=== PATIENT | female | born 1945 ===

== ENCOUNTER 2023-12-25 05:16 | Day surgery (SDC) | payer MEDICARE, BC ==
[2023-12-25] VITALS (15 sets, daily range): BP systolic 107–141; BP diastolic 45–66; PULSE 69–84; TEMP 96.2–98.1
[~2023-12-25] VITALS: Ht 177.8 cm; Wt 77.0 kg
[~2023-12-25 05:16] MED LIST: LR 1,000 ML IV SCH
[2023-12-25] MEDS ORDERED: MOBIC 7.5MG7.5 MG PO (06:36)
[2023-12-25] MEDS ORDERED: PROTONIX 40MG T40 MG PO (06:36)
[2023-12-25] MEDS ORDERED: NEURONTIN300 MG/CAP PO (06:36)
[2023-12-25] MEDS ORDERED: HCTZ 25MG TAB25 MG PO (06:37)
[2023-12-25] MEDS ORDERED: PRINIVIL20 MG PO (06:37)
[2023-12-25] MEDS ORDERED: TYLENOL 500MG500 MG PO (06:38)
[2023-12-25] MEDS ORDERED: MAGNESIUM200 MG PO (06:39)
[2023-12-25] MEDS ORDERED: PHARMASSURE ZIN50 MG PO (06:39)
[2023-12-25] MEDS ORDERED: COMPLETE MULTI1 TAB PO (06:39)
[2023-12-25] MEDS ORDERED: LUTEIN20 M1 PO (06:40)
[2023-12-25] MEDS ORDERED: VITAMIN D362.5 MCG PO (06:41)
[2023-12-25] MEDS ORDERED: Tranexamic Acid 1,000 MG/10 ML VIAL ONE (07:07)
[2023-12-25] MEDS ORDERED: fentaNYL 50 MCG/ML 2 ML VIAL ONE (07:10)
[2023-12-25] MEDS ORDERED: Morphine 4 MG/ML VIAL IV PRN (07:30)
[2023-12-25] MEDS ORDERED: Ondansetron 4 MG/2 ML VIAL IV PRN ×2 (07:30→09:45)
[2023-12-25] MEDS ORDERED: Naloxone 0.4 MG/ML VIAL IV PRN (07:30)
[2023-12-25] MEDS ORDERED: Magnes Hydrox (MOM) 80 MG/ML 30 ML CUP PO PRN (07:30)
[2023-12-25] MEDS ORDERED: Mag/Al Hydrox/Simeth Susp 30 ML CUP PO PRN (07:30)
[2023-12-25] MEDS ORDERED: Bisacodyl 5 MG TAB PO PRN (07:30)
[2023-12-25] MEDS ORDERED: Acetaminophen 500 MG TAB PO PRN (07:30)
[2023-12-25] MEDS ORDERED: NS 1,000 ML IV SCH (07:30)
[2023-12-25] MEDS ORDERED: Ketorolac 15 MG/ML VIAL IV SCH (07:30)
[2023-12-25] MEDS ORDERED: oxyCODONE 5 MG TAB PO PRN (07:30)
[2023-12-25] MEDS ORDERED: Ketorolac 30 MG/ML VIAL IV\\IM ONE (08:16)
[2023-12-25] MEDS ORDERED: Morphine 4 MG/ML VIAL SQ ONE (08:16)
[2023-12-25] MEDS ORDERED: Acetaminophen 500 MG TAB PO SCH (08:23)
[2023-12-25] MEDS ORDERED: Magnes Hydrox (MOM) 80 MG/ML 30 ML CUP PO SCH (09:00)
[2023-12-25] MEDS ORDERED: Sennosides/Docusate 8.6-50 MG TAB PO SCH (09:00)
[2023-12-25] MEDS ORDERED: Ascorbic Acid 500 MG TAB PO SCH (09:00)
[2023-12-25] MEDS ORDERED: HYDROmorphone 1 MG/1 ML SYRINGE [PACU/SDC ONLY] IV PRN (09:45)
[2023-12-25] MEDS ORDERED: hydrALAZINE 20 MG/ML 1 ML VIAL IV PRN (09:45)
[2023-12-25] MEDS ORDERED: fentaNYL 50 MCG/ML 1 ML SYRINGE/VIAL [PACU/SDC ONLY] IV PRN (09:45)
[2023-12-25] MEDS ORDERED: Ketorolac 15 MG/ML VIAL IV PRN (09:45)
[2023-12-25] MEDS ORDERED: ePHEDrine 50 MG/ML VIAL ONE (09:55)
--- NOTE | 2023-12-25 11:22 | NUR ---
PT TO ROOM 327 PER BED WITH REPORT FROM [facility] PACU @4070. PT IS A/O X4, LUNGS CTA, BOWEL SOUNDS PRESENT. DRESSSING TO RIGHT HIP CDI WITH ABD AND SILK TAPE OVER INCISION. SCDS AND TEDS BILATERALLY. PEDAL PULSES STRONG. FAMLY AT BEDSIDE. IV TO LAC 18 G.
[2023-12-25] MEDS ORDERED: ceFAZolin 1 G in Water For Injection,Sterile 10 ML IV SCH ×2 (11:23→15:00)
--- NOTE | 2023-12-25 15:41 | NUR ---
YAKOV met with patient and her son Hector to complete initial assessment for discharge planning. Patient verified that she [place] [facility] with her significant other Hector Cronin ([phone]). She lists her daughter Karen Tyson ([phone]) as her DPOA. Patient sees Dr. Luana Flores as her PCP and uses [facility]. Patient has a FWW, shower chair, BSC, shower chair and grab bars. Patient state she is scheduled for OP therapy at [facility] on 12/27. Discussed that SW will send discharge orders to [facility]. Patient's SO will drive her home at discharge. Discharge plan: Home with OP therapy
--- NOTE | 2023-12-25 19:30 | NUR ---
Assessment complete. A&Ox3. Denies pain/nausea/shortness of breath. VS stable. Currently on 2L/NC O2-decreased to 1L to wean. NS@75mls/hr infusing to left AC without difficulty. Patient states she hasnt voided since surgery. Does not appear to have been straight cath'd post op. States she has no urgency to go. Bladder scanned at this time and 200mls fluid noted. Will continue to assess bladder this shift due to spinal. Dressing to right hip bulky white/foam-CDI. Fresh ice pack applied. Tolerated Some clear liquids from dinner. TEDS/SCDs bilat. Plan of care discussed for this shift to include meds/pain control/calling for questions/concerns. Verbalizes understanding. Call light in reach. Will monitor.
--- NOTE | 2023-12-25 21:05 | NUR ---
Patient called with c/o nausea-no emesis. Zofran given. Will monitor.
--- NOTE | 2023-12-25 23:11 | NUR ---
Patient resting in bed-antibiotics given via IV. Patient states the SCDs are keeping her awake. Taken off at this time for a break. Patient still has not voided but bladder scan reveals 250mls. Will continue to monitor.
[2023-12-26] VITALS (7 sets, daily range): BP systolic 107–135; BP diastolic 66–73; PULSE 84–90; TEMP 97.5–97.9
--- NOTE | 2023-12-26 01:43 | NUR ---
Patient up to bathroom at this time-1 assist with walker/gait belt. Voided 400mls without difficulty. Ambulating well with guidance.
--- NOTE | 2023-12-26 06:30 | NUR ---
Patient had an uneventful night. Ambulated to the bathroom x2 and voided without difficulty. VS remained stable. Patient is ambulating very well with stand by assist/gait belt/walker. Denied pain-received scheduled tylenol only for pain. VS stable. Tolerating PO-IV to left AC INTd. Denies current questions/concerns. Call light in reach. Will monitor.
[2023-12-26 06:40] LABS: HEMATOCRIT 28.4 % (37.0-47.0); HEMOGLOBIN 9.5 g/dl (12.5-16.0)
--- NOTE | 2023-12-26 06:43 | NUR ---
Bedside report given to SHIRA Ivey.
[2023-12-26 06:55] LABS: CALCIUM 8.6 mg/dL (8.4-10.2); CREATININE, serum 0.96 mg/dL (0.57-1.11); POTASSIUM 4.1 mEq/L (3.5-4.5)
--- NOTE | 2023-12-26 10:00 | NUR ---
pt a&ox4 sitting up in recliner just finished with OT. vss. pt denies pain. right hip dressing is cdi. tolerated breakfast well. scds to ble. call light in reach. fall precautions in place. INT to left ac patent. pt denies needs at this time.
--- NOTE | 2023-12-26 12:47 | NUR ---
D: Sales Negotiator stopped by room on rounds. A: Pt was resting and content eating some lunch. Pt has no needs right now. P: Sales Negotiator informed pt that if she needed anything from the director of strategic initiatives area to let her nurse know. Sales Negotiator will follow up as needed.
[2023-12-26] MEDS ORDERED: CEPHALEXIN500 M1 PO (13:14)
[2023-12-26] MEDS ORDERED: ASPIRIN 81M81 MG/TA2 PO (13:14)
[2023-12-26] MEDS ORDERED: NORCO 325 MG-51 TAB PO (13:16)
[2023-12-26] MEDS ORDERED: ULTRAM 50MG TAB50 MG PO (13:16)
--- NOTE | 2023-12-26 13:41 | NUR ---
YAKOV met with patient briefly to follow up on assessment information related to scheduled OP therapy at [facility] OP therapy. Patient states her partner will pick her up today at discharge. YAKOV contacted [facility] to inquire about appointment which is scheduled for 12/27. Discharge orders and clinical information faxed to OP therapy.
--- NOTE | 2023-12-26 14:45 | NUR ---
INT discontinued. discharge instructions given to pt, all questions answered. pt escorted to personal vehicle by wheelchair.
== END 2023-12-26 14:46 | disposition home or self-care (01) ==
LOC: SDCO 05:16 → SURG 11:15 → SDCO 12-26 14:46
PROVIDERS: Orthopaedic Surgery
DX: M16.11 Unilateral primary osteoarthritis, right hip (principal); Z87.891 Personal history of nicotine dependence
CPT/HCPCS: OP; C1776; J0690; J1580; J1885; J2270; J2405; J2704; J2795; J3010; J7030; J7120